=== PATIENT | male | born 1965 | race Caucasian/White ===

== ENCOUNTER 2018-01-26 15:56 | Emergency (ER) | payer MEDICAID ==
[~2018-01-26] VITALS: Ht 175.3 cm; Wt 90.7 kg
[2018-01-26 16:14] VITALS: BP 143/79
== END 2018-01-26 16:43 | disposition left against medical advice (07) ==
LOC: EDUNIT# 15:56 → EDBD 15:56 → ER 15:56
DX: R06.02 Shortness of breath (principal); R07.9 Chest pain, unspecified; Z53.21 Procedure and treatment not carried out due to patient leaving prior to being seen by health care provider